=== PATIENT | female | born 1975 | race Caucasian/White ===

== ENCOUNTER 2017-08-31 05:07 | Outpatient (CLI) | payer MEDICARE, MEDICAID ==
[2017-08-31] MEDS ORDERED: fentaNYL 100 MCG/2 ML VIAL ONE (17:49)
[2017-08-31] MEDS ORDERED: PROMETHAZINE 25 MG/1 ML VIAL ONE (18:38)
== END 2017-08-31 05:08 | disposition critical access hospital (66) ==
LOC: EMS 05:07
PROVIDERS: ATTEND Surgery
DX: R10.9 Unspecified abdominal pain (principal)
CPT/HCPCS: A0425; A0429

== ENCOUNTER 2017-08-31 05:30 | Day surgery (SDC) | payer MEDICARE, MEDICAID ==
[2017-08-31] MEDS ORDERED: HYDROmorphone 1 MG/ML SYRINGE IVP STA ×4 (05:53→14:38)
[2017-08-31] MEDS ORDERED: ONDANSETRON 4 MG/2 ML VIAL IVP STA ×3 (05:53→13:27)
[2017-08-31] MEDS ORDERED: SODIUM CHLORIDE 0.9% 1,000 ML IV ONE ×2 (05:53→12:16)
--- NOTE | 2017-08-31 05:54 | ED Physician Documentation ---
PD HPI ABD PAIN - Stated complaint Stated Complaint: ABD PAIN - Chief complaint Chief Complaint: Abd Pain - History obtained from History obtained from: Patient - History of Present Illness Timing - onset: How many days ago (2) Timing - details: Waxing and waning Quality: Pain Location: RUQ, LUQ Worsened by: Eating Associated symptoms: Nausea, Vomiting, Diarrhea. No: Fever, Dysuria, Chest pain - Additional information Additional information: The patient is a 42-year-old female who presents with upper abdominal pain radiating to her back. The pain started 2 1/2 days ago after eating a turkey sandwich. It has been waxing and waning since that time and became worse this morning. She has had associated nausea, vomiting, and diarrhea. She denies fever, chest pain, shortness of breath, or dysuria. She has had similar but less severe symptoms in the past. She is status post lap band placement in 2010 , and is status post . Review of Systems Constitutional: denies: Fever Ears: denies: Tinnitus/ringing Nose: denies: Congestion Throat: denies: Sore throat Cardiac: denies: Chest pain / pressure Respiratory: denies: Dyspnea, Cough GI: reports: Abdominal Pain, Nausea, Vomiting, Diarrhea : denies: Dysuria Skin: denies: Rash Musculoskeletal: reports: Back pain. 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 PCOS - Past Surgical History Past Surgical History: Yes General: Other - Social History Does the pt smoke?: No Smoking Status: Never smoker Does the pt drink ETOH?: No Does the pt have substance abuse?: No - Immunizations Immunizations are current?: Yes PD ED PE NORMAL - Vitals Vital signs reviewed: Yes (Hypertensive initially.) - General General: Alert and oriented X 3, Other (Morbidly obese.) - HEENT HEENT: Atraumatic, Moist mucous membranes, Pharynx benign - Neck Neck: Supple, no meningeal sign, No adenopathy, No JVD - Cardiac Cardiac: RRR, No murmur - Respiratory Respiratory: No respiratory distress, Clear bilaterally - Abdomen Abdomen: Normal bowel sounds, Soft, Other (Tenderness to palpation across the upper abdomen, with mild tenderness even in the lower abdomen, without rebound or guarding.) - Back Back: No CVA TTP, No spinal TTP - Derm Derm: No rash - Extremities Extremities: No tenderness to palpate, No calf tenderness / cord - Neuro Neuro: Alert and oriented X 3, No motor deficit, Normal speech Results - Vitals Vitals: Vital Signs - 24 hr 08/31/17 08/31/17 08/31/17 05:38 06:43 07:26 Temperature 35.9 C L 36.6 C 36.9 C Heart Rate 89 72 80 Respiratory 18 16 14 Rate Blood Pressure 140/89 H 122/74 124/73 O2 Saturation 100 97 97 08/31/17 08:00 Temperature Heart Rate 74 Respiratory 18 Rate Blood Pressure 129/77 O2 Saturation 95 Oxygen O2 Source Room air - Labs Labs: Laboratory Tests 08/31/17 08/31/17 08/31/17 05:52 06:20 08:05 WBC 7.7 RBC 4.05 L Hgb 11.5 L Hct 34.3 L MCV 84.7 MCH 28.3 MCHC 33.4 RDW 15.2 H Plt Count 277 MPV 8.3 Neut # 6.8 H Lymph # 0.6 L [place] # 0.2 Eos # 0.0 Baso # 0.1 Absolute Nucleated RBC 0.00 Nucleated RBC % 0.0 Sodium 137 Potassium 3.9 Chloride 103 Carbon Dioxide 22 Anion Gap 12.0 BUN 13 Creatinine 0.8 Estimated GFR (MDRD) 79 L Glucose 130 H Calcium 9.0 Total Bilirubin 0.4 AST 18 ALT 14 Alkaline Phosphatase 45 Total Protein 7.6 Albumin 3.9 Globulin 3.7 Albumin/Globulin Ratio 1.1 Lipase 21 L Urine Color YELLOW Urine Clarity CLEAR Urine pH 6.0 Ur Specific [place] 1.015 Urine Protein NEGATIVE Urine Glucose (UA) NEGATIVE Urine Ketones 15 H Urine Occult Blood NEGATIVE Urine Nitrite NEGATIVE Urine Bilirubin NEGATIVE Urine Urobilinogen 0.2 (NORMAL) Ur Leukocyte Esterase NEGATIVE Ur Microscopic Review NOT INDICATED Urine Culture Comments NOT INDICATED PD MEDICAL DECISION MAKING - ED course Complexity details: reviewed results, re-evaluated patient, considered differential, d/w patient ED course: The patient presents with upper abdominal pain that is of uncertain etiology at this time. CBC, chemistry panel, and urinalysis are unremarkable. Initial treatment in the emergency department included administration of normal saline 1 L IV, Dilaudid 1 mg IV, and Zofran 4 mg IV. This helped diminish the patient' s pain and nausea. On reexamination she is more exquisitely tender now in the right upper quadrant than elsewhere. An ultrasound of the right upper quadrant has been ordered, and the results are pending. At change of shift her care is being signed out to Dr. Ford who will follow-up on the ultrasound results and provide appropriate disposition. If there is no biliary cause found to explain the patient's symptoms, possible malfunction of the lap band may need to be further considered.
[2017-08-31] MEDS ORDERED: ONDANSETRON 4 MG/2 ML VIAL ONE ×4 (06:08→13:46)
[2017-08-31 06:43] LABS: ALBUMIN/GLOBULIN RATIO 1.1 (1.0-2.2); BILIRUBIN,TOTAL 0.4 mg/dL (0.2-1.0); CREATININE 0.8 mg/dL (0.4-1.0); POTASSIUM 3.9 mmol/L (3.5-5.0); TOTAL PROTEIN 7.6 g/dL (6.7-8.2)
[2017-08-31 08:11] LABS: BASOPHILS # (AUTO) 0.1 10^3/uL (0.0-0.1); BASOPHILS % (AUTO) 0.8 %; EOSINOPHILS % (AUTO) 0.1 %; HCT - HEMATOCRIT 34.3 % (37.0-47.0); HGB - HEMOGLOBIN 11.5 g/dL (12.0-16.0); LYMPHOCYTES # (AUTO) 0.6 10^3/uL (1.5-3.5); LYMPHOCYTES % (AUTO) 8.4 %; MEAN CORPUSCULAR HEMOGLOBIN 28.3 pg (27.0-31.0); MEAN CORPUSCULAR HGB CONC 33.4 g/dL (32.0-36.0); MEAN CORPUSCULAR VOLUME 84.7 fL (81.0-99.0); MEAN PLATELET VOLUME 8.3 fL (7.9-10.8); MONOCYTES # (AUTO) 0.2 10^3/uL (0.0-1.0); MONOCYTES % (AUTO) 2.6 %; NEUTROPHILS # (AUTO) 6.8 10^3/uL (1.5-6.6); NEUTROPHILS % (AUTO) 88.1 %; RED BLOOD COUNT 4.05 10^6/uL (4.20-5.40); RED CELL DISTRIBUTION WIDTH 15.2 % (12.0-15.0); UNCORRECTED WHITE BLOOD COUNT 7.7 x10^3/uL; WHITE BLOOD COUNT 7.7 x10^3/uL (4.8-10.8)
[2017-08-31 08:19] LABS: BILIRUBIN,URINE NEGATIVE (NEGATIVE)
[2017-08-31 08:21] LABS: UA CHARGE (STRIP ONLY) YES; UR CULTURE IF IND NOT INDICATED
[2017-08-31] MEDS ORDERED: HYDROmorphone 0.5 MG/0.5 ML SYRINGE IVP STA (08:43)
[2017-08-31] MEDS ORDERED: HYDROmorphone 1 MG/ML SYRINGE ONE ×5 (08:50→18:51)
--- NOTE | 2017-08-31 10:59 | Ultrasound Report ---
RIGHT UPPER QUADRANT ULTRASOUND: 08/31/2017 CLINICAL INDICATION: Pain, vomiting. TECHNIQUE: Real-time scanning was performed with contact representative static images obtained. FINDINGS: The liver measures 17.2 cm. Hepatic echogenicity is increased, compatible with fatty infil tration. No focal parenchymal lesion is seen. The common bile duct is minimally prominent, measuring 6 mm. The gallbladder demonstrates a calculus lodged in the neck. Localized tenderness is present. Th e right kidney measures 12.7 cm, and demonstrates no hydronephrosis. No free fluid is seen. IMPRESSION: CHOLELITHIASIS, WITH LOCALIZED TENDERNESS, COMPATIBLE WITH CALCULOUS CHOLECYSTITIS. FATT Y INFILTRATION OF THE LIVER. JOB #: [id number] EXT JOB #:[id number]
--- NOTE | 2017-08-31 12:23 | ED Physician Documentation ---
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 PCOS - Past Surgical History Past Surgical History: Yes General: Other - Present Medications Home Medications: Ambulatory Orders Medication Instructions Recorded Confirmed Citalopram [CeleXA] 10 mg PO DAILY 08/31/17 08/31/17 Labetalol [Trandate] 100 mg PO DAILY 08/31/17 08/31/17 metFORMIN [Glucophage] 500 mg PO DAILY 08/31/17 08/31/17 - Allergies Allergies/Adverse Reactions: Allergies Allergy/AdvReac Type Severity Reaction Status Date / Time acetaminophen [From Vicodin] Allergy Unknown Verified 08/31/17 08:46 hydrocodone [From Vicodin] Allergy Unknown Verified 08/31/17 08:46 - Social History Does the pt smoke?: No Smoking Status: Never smoker Does the pt drink ETOH?: No Does the pt have substance abuse?: No - Immunizations Immunizations are current?: Yes Results - Vitals Vitals: Vital Signs - 24 hr 08/31/17 08/31/17 08/31/17 05:38 06:43 07:26 Temperature 35.9 C L 36.6 C 36.9 C Heart Rate 89 72 80 Respiratory 18 16 14 Rate Blood Pressure 140/89 H 122/74 124/73 O2 Saturation 100 97 97 08/31/17 08/31/17 08/31/17 08:00 09:23 10:20 Temperature 36.9 C Heart Rate 74 79 70 Respiratory 18 15 15 Rate Blood Pressure 129/77 118/68 148/91 H O2 Saturation 95 97 97 Oxygen O2 Source Room air - Labs Labs: Laboratory Tests 08/31/17 08/31/17 08/31/17 05:52 06:20 08:05 WBC 7.7 RBC 4.05 L Hgb 11.5 L Hct 34.3 L MCV 84.7 MCH 28.3 MCHC 33.4 RDW 15.2 H Plt Count 277 MPV 8.3 Neut # 6.8 H Lymph # 0.6 L [place] # 0.2 Eos # 0.0 Baso # 0.1 Absolute Nucleated RBC 0.00 Nucleated RBC % 0.0 Sodium 137 Potassium 3.9 Chloride 103 Carbon Dioxide 22 Anion Gap 12.0 BUN 13 Creatinine 0.8 Estimated GFR (MDRD) 79 L Glucose 130 H Calcium 9.0 Total Bilirubin 0.4 AST 18 ALT 14 Alkaline Phosphatase 45 Total Protein 7.6 Albumin 3.9 Globulin 3.7 Albumin/Globulin Ratio 1.1 Lipase 21 L Urine Color YELLOW Urine Clarity CLEAR Urine pH 6.0 Ur Specific [place] 1.015 Urine Protein NEGATIVE Urine Glucose (UA) NEGATIVE Urine Ketones 15 H Urine Occult Blood NEGATIVE Urine Nitrite NEGATIVE Urine Bilirubin NEGATIVE Urine Urobilinogen 0.2 (NORMAL) Ur Leukocyte Esterase NEGATIVE Ur Microscopic Review NOT INDICATED Urine Culture Comments NOT INDICATED PD MEDICAL DECISION MAKING - ED course Complexity details: reviewed old records, reviewed results, re-evaluated patient , considered differential, d/w patient ED course: 42-year-old female status post lap band in 2010 has developed right upper quadrant pain she has had this periodically previously never this bad and she has had pain now for 2 and half days. She is not able to eat drink or keep any of her medications down. An ultrasound done demonstrates a large solitary stone lodged in the neck of the gallbladder and a my read of the pictures demonstrate trace pericholecystic fluid. Dr. Aviles is consulted in the case and will see the patient in the ED. Departure - Departure Disposition: ED Place in Observation Clinical Impression: Cholelithiasis Qualifiers: Cholelithiasis location: gallbladder Cholecystitis presence: with cholecystitis Cholecystitis acuity: acute Biliary obstruction: without biliary obstruction Qualified Code(s): K80.00 - Calculus of gallbladder with acute cholecystitis without obstruction
[2017-08-31 15:03] LABS: HCG UR QUAL NEGATIVE
[2017-08-31] MEDS ORDERED: BUPIVACAINE 0.25%-EPI 1:200000 PF 30 ML VIAL SUBQ ONE (15:50)
[2017-08-31] MEDS ORDERED: LACTATED RINGERS 1,000 ML IV ONE ×3 (15:51→17:58)
[2017-08-31] MEDS ORDERED: ONDANSETRON 4 MG/2 ML VIAL IVP ONE (16:25)
[2017-08-31] MEDS ORDERED: ACETAMINOPHEN 1,000 MG/100 ML 100 ML IV ONE (16:25)
[2017-08-31] MEDS ORDERED: MIDAZOLAM 2 MG/2 ML VIAL IVP ONE (16:25)
[2017-08-31] MEDS ORDERED: ROCURONIUM 50 MG/5 ML VIAL IVP ONE (16:25)
[2017-08-31] MEDS ORDERED: fentaNYL 100 MCG/2 ML VIAL IVP ONE (16:25)
[2017-08-31] MEDS ORDERED: KETOROLAC 30 MG/ML VIAL IVP ONE (16:25)
[2017-08-31] MEDS ORDERED: PROPOFOL 200 MG/20 ML VIAL IVP ONE (16:25)
[2017-08-31] MEDS: HYDROmorphone 1 MG/ML SYRINGE ONE ×4 (18:06→18:52)
[2017-08-31] MEDS ORDERED: ONDANSETRON 4 MG/2 ML VIAL IVP PRN ×2 (20:01→21:14)
[2017-08-31] MEDS ORDERED: MORPHINE 2 MG/ML SYRINGE IVP PRN (21:14)
[2017-08-31] MEDS ORDERED: ZOLPIDEM 5 MG TABLET ONE (21:16)
[2017-08-31] MEDS ORDERED: ZOLPIDEM 5 MG TABLET PO SCH (22:00)
[2017-08-31] MEDS: oxyCOD/ACETAMIN 5 MG/325 MG TABLET PO PRN ×2 (22:37→22:43)
[2017-08-31] MEDS ORDERED: SODIUM CHLORIDE FLUSH 0.9% 10 ML SYRINGE IVP ONE ×2 (22:39→23:48)
[2017-08-31 23:41] VITALS: BP 147/86
[2017-08-31] MEDS: ACETAMINOPHEN 1,000 MG/100 ML 100 ML IV PRN (23:44)
[2017-09-01] MEDS ORDERED: PROMETHAZINE INJ 25 MG in SODIUM CHLORIDE 0.9% 50 ML IV PRN (02:03)
[2017-09-01] MEDS ORDERED: KETOROLAC 30 MG/ML VIAL IVP SCH (02:03)
[2017-09-01] MEDS ORDERED: PROMETHAZINE 25 MG/1 ML VIAL ONE (02:56)
[2017-09-01] MEDS ORDERED: SODIUM CHLORIDE FLUSH 0.9% 10 ML SYRINGE IVP ONE ×2 (03:07→09:24)
[2017-09-01] MEDS ORDERED: SODIUM CHLORIDE 0.9% 100ML 100 ML IV ONE (03:08)
--- NOTE | 2017-09-01 03:43 | OPERATIVE REPORT ---
DATE OF SURGERY: 08/31/2017 00:00:00 SURGEON: Darcy Aviles MD. PREOPERATIVE DIAGNOSIS: Biliary colic. POSTOPERATIVE DIAGNOSIS: Acute cholecystitis. OPERATION PERFORMED: Laparoscopic cholecystectomy. INDICATION FOR PROCEDURE: This is a 42-year-old female with pain for the past 3 days, consistent with biliary colic vs acute cholecystitis. She came to the emergency department today and white count and LFTs were noted to be normal. Her gallbladder ultrasound demonstrated a large stone in the neck of the gallbladder. FINDINGS: After obtaining informed consent, the patient was brought into the operating room and positioned on the operating table in the supine position with a foot board in place and taped to the table. She was intubated by Anesthesia. She was prepped and draped in the usual sterile fashion. Perioperative antibiotics were administered. Due to the patient's morbid obesity and body habitus in addition to a lap band with an intraabdominal port, I elected to perform the Optiview approach directly. A 5 mm incision was created in the epigastric region and the Optiview trocar utilized to enter the abdominal cavity in this location. The cavity was then insufflated. A 1 cm incision was then created approximately 5 cm above the patient's umbilicus to the right of the palpable intraabdominal port. This was inserted under direct visualization. Two additional 5 mm ports were then placed along the patient's right lateral abdominal wall. The gallbladder was visualized and noted to be very distended. The drainage needle was inserted and approximately 50 mL of very light bilious fluid was evacuated. The gallbladder was then grasped and retracted over the dome of the liver. A very large stone was noted in the neck of the gallbladder, creating difficulty grasping it at this location. The gallbladder was retracted medially exposing the lateral attachments. These were divided towards the anterior aspect of the neck of the gallbladder and then continued around towards the medial aspect of the gallbladder, the gallbladder from the peritoneal attachments. The cystic duct was identified, circumferentially dissected from the fatty tissue. The cystic artery was similarly dissected away from the Calot's node and other subcutaneous tissue. The base of the gallbladder was dissected off of the liver bed. A critical view was obtained. The cystic duct was clipped with 2 clips placed proximally, 1 distally, and divided. The artery was divided in a similar manner. The gallbladder was then removed from the gallbladder fossa with electrocautery. There was some spillage of bile during this process from the drainage needle insertion site. There was also some bleeding from the liver bed; however, this was controlled with electrocautery. The gallbladder was eventually completely removed and placed in a specimen bag. Due to the very large stone, the umbilical port site had to be extended in order to allow withdrawal of the gallbladder. The sac actually partially ruptured during this process and a second EndoCatch bag was inserted and the gallbladder and bag were placed in a second EndoCatch bag. Eventually the gallbladder was completely removed from the abdominal cavity after extending the fascial incision to accommodate the very large gallstone. The ports were then reinserted. The liver bed was inspected and there was a small amount of bleeding on the tip of the liver, which was controlled with electrocautery. The liver bed was irrigated copiously and a piece of Surgicel placed in the gallbladder fossa. Irrigation was removed and was noted to be clear. The lower abdominal port site was then closed using the Anastacio-Shaw device with 0 Vicryl suture. All ports were removed after the abdominal cavity was desufflated. There was a persistent facial defect noted at the lower abdominal incision. This was closed directly with a 0 Vicryl suture from the anterior approach. The subcutaneous tissue was closed with 3-0 Vicryl; 30 mL of local anesthetic was utilized and the skin incisions were closed with 4-0 Monocryl and Dermabond was applied. The patient was then extubated and taken to the recovery room in stable condition. ESTIMATED BLOOD LOSS: 20 mL. SPECIMENS: Gallbladder. COMPLICATIONS: None. JOB #: [id number] EXT JOB #:[id number] [facility]OSPITALJono
[2017-09-01] MEDS: oxyCOD/ACETAMIN 5 MG/325 MG TABLET PO PRN (08:32)
[2017-09-01] MEDS: ACETAMINOPHEN 1,000 MG/100 ML 100 ML IV PRN (09:22)
== END 2017-09-01 13:02 | disposition home or self-care (01) ==
LOC: ED 05:30 → SUPCPDRO 05:30 → SDS 15:00 → OBS 18:15 → SDS 09-01 13:02
PROVIDERS: ATTEND Surgery
PROC: 0FT44ZZ Resection of Gallbladder, Percutaneous Endoscopic Approach (ICD-10-PCS; principal; 2017-09-01)
DX: K80.10 Calculus of gallbladder with chronic cholecystitis without obstruction (principal); E11.9 Type 2 diabetes mellitus without complications; Z79.84 Long term (current) use of oral hypoglycemic drugs
CPT/HCPCS: 47562; 76705; 80053; 81003; 81025; 83690; 85025; 96361; 96374; 96375; 96376; 99284; 99285; A9270; J0131; J1170; J2270; J7040; J7120; 81001; 87086

== ENCOUNTER 2017-09-07 13:12 | Outpatient (CLI) | payer MEDICARE, MEDICAID | END 2017-09-07 13:13 | disposition critical access hospital (66) | LOC: EMS 13:12 | PROVIDERS: ATTEND Surgery | DX: R10.9 Unspecified abdominal pain (principal); Z90.49 Acquired absence of other specified parts of digestive tract | CPT/HCPCS: A0425; A0427 ==

== ENCOUNTER 2017-09-07 13:35 | Observation (INO) | payer MEDICARE, MEDICAID ==
--- NOTE | 2017-09-07 13:46 | ED Physician Documentation ---
PD HPI ABD PAIN - Stated complaint Stated Complaint: ABD PX - Chief complaint Chief Complaint: Abd Pain - History obtained from History obtained from: Patient, EMS - History of Present Illness Timing - onset: How many days ago (3 days of worse pain than the immmediate post -operative pain. Today significantly worse.) Timing - duration: Days Timing - details: Gradual onset, Still present Quality: Cramping, Aching, Pain Location: RUQ, Periumbilical Radiation: Upper back Improved by: No: Vomiting Worsened by: Moving, Position. No: Breathing Associated symptoms: Fever (subjective chills), Nausea. No: Diarrhea, Constipation Recently seen: Surgery (Had emergent cholecystectomy a week ago for right upper quadrant pain. Done by Dr. Keo [place]. She states she is doing okay postoperatively Thursday through Thursday and have been taking some Percocet for pain. She had increased pain over the weekend (the past 2 days) but no feeling of nausea or vomiting. Today she had a marked increase in the amount of pain in the upper abdomen associated with nausea. She did feel chilled. She had a considerable amount of pain and came into the ER moaning and in significant pain.) Review of Systems Constitutional: reports: Chills. denies: Fever Cardiac: denies: Chest pain / pressure, Palpitations Respiratory: denies: Dyspnea, Cough, Wheezing GI: reports: Abdominal Pain, Nausea, Vomiting. 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 HEENT: None Psych: Depression, Anxiety Musculoskeletal: None Derm: None - Past Surgical History Past Surgical History: Yes General: Other - Present Medications Home Medications: Ambulatory Orders Medication Instructions Recorded Confirmed Citalopram [CeleXA] 10 mg PO DAILY 08/31/17 09/07/17 Labetalol [Trandate] 100 mg PO DAILY 08/31/17 09/07/17 metFORMIN [Glucophage] 500 mg PO BID 08/31/17 09/07/17 - Allergies Allergies/Adverse Reactions: Allergies Allergy/AdvReac Type Severity Reaction Status Date / Time acetaminophen [From Vicodin] Allergy Unknown Verified 09/07/17 13:39 hydrocodone [From Vicodin] Allergy Unknown Verified 09/07/17 13:39 - Social History Does the pt smoke?: No Smoking Status: Never smoker Does the pt drink ETOH?: No Does the pt have substance abuse?: No - Immunizations Immunizations are current?: Yes PD ED PE NORMAL - Vitals Vital signs reviewed: Yes - General General: Alert and oriented X 3, Well developed/nourished, Other (appears very uncomfortable with loud moaning continually. ) - HEENT HEENT: Atraumatic, PERRL (nonicteric) - Neck Neck: Supple, no meningeal sign, No adenopathy - Cardiac Cardiac: RRR, No murmur - Respiratory Respiratory: Clear bilaterally - Abdomen Abdomen: Soft, Non distended, Other (tender upper abdomen and right abd wall. Incision sites are lower abd and not tender, without signs of infection. ). No : Normal bowel sounds (diminished) - Female Female : Deferred - Rectal Rectal: Deferred - Back Back: No CVA TTP - Derm Derm: Normal color, Warm and dry, No rash - Extremities Extremities: No deformity, No tenderness to palpate, Normal ROM s pain, No edema , No calf tenderness / cord - Neuro Neuro: Alert and oriented X 3, No motor deficit, Normal speech - Psych Psych: Normal mood, Normal affect Results - Vitals Vitals: Vital Signs - 24 hr 09/07/17 09/07/17 09/07/17 13:37 15:00 16:00 Temperature 36.7 C Heart Rate 80 84 86 Respiratory 24 20 16 Rate Blood Pressure 144/92 H 156/90 H 148/70 H O2 Saturation 96 100 Oxygen O2 Source Room air - Labs Labs: Laboratory Tests 09/07/17 09/07/17 14:35 14:35 WBC 10.3 RBC 5.07 Hgb 14.4 Hct 42.6 MCV 84.1 MCH 28.3 MCHC 33.7 RDW 15.1 H Plt Count 412 MPV 7.6 L Neut # 8.3 H Lymph # 1.2 L [place] # 0.5 Eos # 0.3 Baso # 0.0 Absolute Nucleated RBC 0.01 Nucleated RBC % 0.1 Sodium 138 Potassium 4.1 Chloride 101 Carbon Dioxide 23 Anion Gap 14.0 H BUN 12 Creatinine 0.8 Estimated GFR (MDRD) 79 L Glucose 120 H Calcium 9.4 Total Bilirubin 0.5 AST 47 H ALT 41 Alkaline Phosphatase 54 Total Protein 7.8 Albumin 3.9 Globulin 3.9 Albumin/Globulin Ratio 1.0 Lipase 25 - Rads (name of study) abd CT Radiology: Prelim report reviewed (There is some fluid and air in the gallbladder fossa. There is also air and inflammatory changes with some edema in the right abdominis rectus muscle. Nonspecific benjamin color in the mid abdomen. These may represent postoperative changes and continued versus concern for inflammatory or infectious process.) PD MEDICAL DECISION MAKING - ED course Complexity details: reviewed results, re-evaluated patient (Several doses of pain medication and nausea medicine were required to get the patient comfortable. On reexam she is pump tender on the right abdomen with some guarding. Externally there is still no signs of infection at the skin incision areas.), considered differential, d/w patient, d/w telesales consultant (Dr. Morales, fire protection designer surgery) Departure - Departure Disposition: ED Place in Observation Clinical Impression: Post-operative pain Abdominal pain Qualifiers: Abdominal location: right upper quadrant Qualified Code(s): R10.11 - Right upper quadrant pain Condition: Stable Record reviewed to determine appropriate education?: Yes Discharge Date/Time: 09/07/17 18:03
[2017-09-07] MEDS ORDERED: SODIUM CHLORIDE 0.9% 1,000 ML IV ONE (14:00)
[2017-09-07] MEDS ORDERED: HYDROmorphone 1 MG/ML SYRINGE IVP STA ×3 (14:00→15:01)
[2017-09-07] MEDS ORDERED: ONDANSETRON 4 MG/2 ML VIAL IVP STA (14:00)
[2017-09-07] MEDS ORDERED: KETOROLAC 60 MG/2 ML VIAL IVP STA (14:01)
[2017-09-07] MEDS ORDERED: IOPAMIDOL-300 100 ML VIAL ONE (14:10)
[2017-09-07] MEDS ORDERED: ONDANSETRON 4 MG/2 ML VIAL ONE (14:20)
[2017-09-07] MEDS ORDERED: HYDROmorphone 1 MG/ML SYRINGE ONE ×3 (14:20→15:48)
[2017-09-07] MEDS ORDERED: KETOROLAC 30 MG/ML VIAL ONE (14:47)
[2017-09-07 14:54] LABS: BASOPHILS % (AUTO) 0.2 %; EOSINOPHILS # (AUTO) 0.3 10^3/uL (0.0-0.7); EOSINOPHILS % (AUTO) 2.6 %; HCT - HEMATOCRIT 42.6 % (37.0-47.0); HGB - HEMOGLOBIN 14.4 g/dL (12.0-16.0); LYMPHOCYTES # (AUTO) 1.2 10^3/uL (1.5-3.5); LYMPHOCYTES % (AUTO) 11.5 %; MEAN CORPUSCULAR HEMOGLOBIN 28.3 pg (27.0-31.0); MEAN CORPUSCULAR HGB CONC 33.7 g/dL (32.0-36.0); MEAN CORPUSCULAR VOLUME 84.1 fL (81.0-99.0); MEAN PLATELET VOLUME 7.6 fL (7.9-10.8); MONOCYTES # (AUTO) 0.5 10^3/uL (0.0-1.0); MONOCYTES % (AUTO) 5.1 %; NEUTROPHILS # (AUTO) 8.3 10^3/uL (1.5-6.6); NEUTROPHILS % (AUTO) 80.6 %; NUCLEATED RED BLOOD CELLS AUTO 0.1 /100WBC; RED BLOOD COUNT 5.07 10^6/uL (4.20-5.40); RED CELL DISTRIBUTION WIDTH 15.1 % (12.0-15.0); UNCORRECTED WHITE BLOOD COUNT 10.3 x10^3/uL; WHITE BLOOD COUNT 10.3 x10^3/uL (4.8-10.8)
[2017-09-07 15:04] LABS: BILIRUBIN,TOTAL 0.5 mg/dL (0.2-1.0); CALCIUM 9.4 mg/dL (8.5-10.3); CREATININE 0.8 mg/dL (0.4-1.0); POTASSIUM 4.1 mmol/L (3.5-5.0); TOTAL PROTEIN 7.8 g/dL (6.7-8.2)
[2017-09-07] MEDS ORDERED: IOPAMIDOL-300 100 ML VIAL IVP ONE (15:42)
--- NOTE | 2017-09-07 16:13 | CT Report ---
EXAM: CT ABDOMEN AND PELVIS EXAM DATE: 09/07/2017 03:47 PM. CLINICAL HISTORY: Post operative pain and vomiting, 1 week post cholecystectomy. COMPARISONS: Abdominal ultrasound 08/31/2017. TECHNIQUE: Routine helical CT imaging was performed through the abdomen and pelvis. IV contrast: Isov ue 300 100mL. Enteric contrast: No. Reconstructions: Coronal and sagittal. Large BMI with associated streak artifacts. In accordance with CT protocol optimization, one or more of the following dose reduction techniques w ere utilized for this exam: automated exposure control, adjustment of mA and/or KV based on patient s ize, or use of iterative reconstructive technique. FINDINGS: Lung Bases: Unremarkable. Liver: Normal. No masses. Gallbladder/Bile Ducts: Surgically absent. Postoperative fluid and air within gallbladder fossa. Spleen: Central calcified granuloma. Pancreas: Normal. Adrenal Glands: Normal. Kidneys: Normal. No masses or hydronephrosis. Peritoneal Cavity/Bowel: Laparoscopic gastric band noted. Tubing appears intact. The appendix is well visualized and normal. Mild benjamin appearance versus artifact of lower abdominal mesentery on coronal images 26-30. Streak artifacts in posterior abdomen and pelvis. Very small fat-containing vocal hernia. No inflammation evident. Pelvic Organs: Bladder is collapsed. Anteverted uterus is grossly unremarkable with evaluation limite d by streak artifacts. No adnexal mass evident. Vasculature: No aneurysms or other significant abnormality. Bones: L5-S1 degenerative disk changes. At least mild bilateral L5-S1 neuroforaminal narrowing relate d to disk osteophyte complexes. Other: Elongated foci of soft tissue air within and along right rectus muscle. IMPRESSION: 1. Small amount of fluid and air within gallbladder fossa. Probably normal findings, given recent cho lecystectomy. No definite rim-enhancing abscess demonstrated. 2. Small amount of postoperative air is also noted within and adjacent to right rectus muscle. 3. Laparoscopic gastric band noted. 4. Benjamin appearance of lower abdominal mesentery may be from mild edema or artifact. Band of streak a rtifacts noted posterior to this area. No mesenteric arterial or venous thrombus evident. 5. No bowel obstruction. [facility] Referring Provider Line: [phone] SITE ID: [id number]
[2017-09-07] MEDS ORDERED: HYDROmorphone 0.5 MG/0.5 ML SYRINGE IVP PRN (17:41)
[2017-09-07] MEDS ORDERED: ONDANSETRON 4 MG/2 ML VIAL IVP PRN (18:06)
[2017-09-07] MEDS: HYDROmorphone 1 MG/ML SYRINGE IVP PRN ×2 (19:45→23:46)
[2017-09-07] MEDS: AMPICILLIN/SULBACTAM 3 GM in SODIUM CHLORIDE 0.9% MINIBAG 100 ML IV SCH (19:48)
[2017-09-07] MEDS: D5NS W/20 MEQ KCL 1,000 ML IV SCH (19:48)
[2017-09-07] MEDS ORDERED: LABETALOL 100 MG TABLET PO SCH (21:00)
[2017-09-07] MEDS ORDERED: CITALOPRAM 10 MG TABLET PO SCH (21:00)
[2017-09-07 21:04] LABS: HCG UR QUAL NEGATIVE
[2017-09-07] MEDS: SODIUM CHLORIDE FLUSH 0.9% 10 ML SYRINGE IVP PRN (23:46)
[2017-09-07] MEDS ORDERED: ZOLPIDEM 5 MG TABLET PO PRN (23:59)
[2017-09-08] MEDS: AMPICILLIN/SULBACTAM 3 GM in SODIUM CHLORIDE 0.9% MINIBAG 100 ML IV SCH ×3 (00:13→12:19)
--- NOTE | 2017-09-08 03:00 | HISTORY & PHYSICAL EXAMINATION ---
DATE OF ADMISSION: 09/07/2017 REASON FOR ADMISSION: Abdominal pain status post laparoscopic cholecystectomy. HISTORY OF PRESENT ILLNESS: The patient is a 42-year-old female who presents with increasing abdomina l pain. She had underwent a laparoscopic cholecystectomy 1 week ago. She been on Percocet, but has no t had any pain medication as she has run out for last 2 days. Because of the increasing abdominal terrell n she came to the emergency room. She denies any nausea, vomiting, fevers or problems with bowel move ments. PAST SURGICAL HISTORY/MEDICAL PROBLEMS/ALLERGIES/HABITS/FAMILY HISTORY: See history of present illnes s. PHYSICAL EXAMINATION: VITAL SIGNS: Temperature is 36.6, heart rate 86, blood pressure 148/70. GENERAL: The patient is lying in bed. She is cooperative and not in any distress at the current time. HEENT: Eyes anicteric. HEART: Regular. LUNGS: Clear. ABDOMEN: Soft. Abdominal incision is clean without any evidence of infection. DIAGNOSTIC DATA: White blood cell count 10, hemoglobin 14. Liver function tests show an AST of 47 wit h the rest of them being normal. CT scan of the abdomen and pelvis shows a small amount of fluid artie g with air in the gallbladder fossa of unknown significance. ASSESSMENT: Abdominal pain status post laparoscopic cholecystectomy one week ago. CT scan does show p ostoperative changes, but unable to tell if there are acute changes. I would recommend the patient un dergo a hepatobiliary scan to rule out any bile leak. PLAN: 1. The patient will be admitted to observation. 2. N.p.o. 3. Empiric IV antibiotics. 4. IV pain medications. 5. Hepatobiliary scan. JOB #: [id number] EXT JOB #:[id number]
[2017-09-08] MEDS ORDERED: LORazepam 2 MG/ML SYRINGE IVP SCH (03:23)
[2017-09-08] MEDS ORDERED: SUMAtriptan 6 MG/0.5 ML VIAL SUBQ SCH (03:23)
[2017-09-08] MEDS: SODIUM CHLORIDE FLUSH 0.9% 10 ML SYRINGE IVP PRN ×5 (03:42→14:31)
[2017-09-08] MEDS ORDERED: SUMAtriptan 6 MG/0.5 ML VIAL SUBQ ONE (03:57)
[2017-09-08] MEDS: D5NS W/20 MEQ KCL 1,000 ML IV SCH ×2 (04:38→09:40)
[2017-09-08] MEDS: HYDROmorphone 1 MG/ML SYRINGE IVP PRN ×5 (05:16→14:32)
[2017-09-08 06:25] LABS: BILIRUBIN,TOTAL 0.3 mg/dL (0.2-1.0); TOTAL PROTEIN 6.5 g/dL (6.7-8.2)
[2017-09-08 06:35] LABS: BILIRUBIN,DIRECT < 0.1 mg/dL (0.1-0.5)
--- NOTE | 2017-09-08 11:47 | Nuclear Medicine Prelim Report ---
Exam: NM HEPATOBILIARY HIDA W/O RX IMPRESSION: 1. Nonvisualization of the gallbladder compatible with cholecystectomy. No definite abnormal radiotra cer collection to indicate bile leak. 2. Probable enterogastric reflux as noted above. [facility] SITE ID: [id number]
--- NOTE | 2017-09-08 11:49 | Nuclear Medicine Report ---
EXAM: HEPATOBILIARY SCAN WITH CCK/KINEVAC ADMINISTRATION EXAM DATE: 09/08/2017 09:41 AM. CLINICAL HISTORY: R/o biliary leak. Upper abdominal pain. Recent laparoscopic cholecystectomy. COMPARISON: CT 09/07/2017. TECHNIQUE: Following the intravenous administration of four-point mCi of Tc99m Mebrofenin, a hepatobi liary scan was done centered on the liver and gallbladder in multiple sequential images and projectio ns. FINDINGS: Normal extraction of tracer from the blood pool indicating normal hepatocellular function. The liver size and shape is grossly within normal limits. Appearance of tracer in the biliary tree as early as 10 minutes, within normal limits. Gallbladder is not visualized compatible with reported history of cholecystectomy. On the 10 minute a nd subsequent images, there is moderate activity extending medial and cephalad to the region of the g allbladder fossa, most likely enterogastric reflux. No definite abnormal radiotracer collection to in dicate bile leak. Appearance of tracer in the small bowel as early as 10 minutes, within normal limits. IMPRESSION: 1. Nonvisualization of the gallbladder compatible with cholecystectomy. No definite abnormal radiotra cer collection to indicate bile leak. 2. Probable enterogastric reflux as noted above. [facility] Referring Provider Line: [phone] SITE ID: [id number]
[2017-09-08 13:02] VITALS: BP 148/96
--- NOTE | 2017-09-08 13:13 | Discharge Plan ---
Discharge Plan Disposition: 01 Home, Self Care Condition: Stable Diet: Regular Activity Restrictions: No Restrictions Shower Restrictions: No Driving Restrictions: No Weight Bearing: Full Weight No Smoking: If you smoke, Please STOP! Call for help. Follow-up with: Chapis Elizondo PA [Primary Care Provider] -
== END 2017-09-08 14:50 | disposition home or self-care (01) ==
LOC: EDUNIT# → ED 13:35 → OBS 17:36
PROVIDERS: ADMIT Surgery; ATTEND Surgery
DX: G89.18 Other acute postprocedural pain (principal); E11.9 Type 2 diabetes mellitus without complications; F32.9 Major depressive disorder, single episode, unspecified; F41.9 Anxiety disorder, unspecified; Z79.84 Long term (current) use of oral hypoglycemic drugs; Z79.899 Other long term (current) drug therapy
CPT/HCPCS: 36415; 74177; 78226; 80053; 80076; 81025; 83690; 85025; 96361; 96365; 96366; 96372; 96375; 96376; 99283; 99284; A9270; A9537; G0378; J1170; J2060; Q9967

== ENCOUNTER 2018-08-01 11:16 | Emergency (ER) | payer MEDICARE, MEDICAID ==
[2018-08-01] MEDS ORDERED: TETANUS/DIPHTHERIA/PERTUSSIS 0.5 ML SYRINGE IM ONE (11:28)
[2018-08-01] MEDS ORDERED: BUPIVACAINE 0.5% PF 10 ML VIAL SUBQ STA (12:17)
[2018-08-01] MEDS ORDERED: ACETAMINOPHEN 325 MG TABLET PO STA (12:33)
--- NOTE | 2018-08-01 12:33 | ED Physician Documentation ---
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 - Present Medications Home Medications: Ambulatory Orders Medication Instructions Recorded Confirmed Citalopram [CeleXA] 10 mg PO DAILY 08/31/17 09/07/17 Labetalol [Trandate] 100 mg PO DAILY 08/31/17 09/07/17 metFORMIN [Glucophage] 500 mg PO BID 08/31/17 09/07/17 - Allergies Allergies/Adverse Reactions: Allergies Allergy/AdvReac Type Severity Reaction Status Date / Time acetaminophen [From Vicodin] Allergy Unknown Verified 08/01/18 11:25 hydrocodone [From Vicodin] Allergy Unknown Verified 08/01/18 11:25 - Social History Does the pt smoke?: No Smoking Status: Never smoker Does the pt drink ETOH?: No Does the pt have substance abuse?: No - Immunizations Immunizations are current?: Yes PD ED PE NORMAL - Vitals Vital signs reviewed: Yes - Extremities Extremities: Other (R index 1/5 cm lac to dorsla radial aspecy mid phalange adh to DIP, MSV intact, no FB seen or palpated, tendon fxn intact) Results - Vitals Vitals: Vital Signs - 24 hr 08/01/18 11:20 Temperature 36.5 C Heart Rate 82 Respiratory 15 Rate Blood Pressure 139/105 H O2 Saturation 98 Oxygen O2 Source Room air - Rads (name of study) finger Radiology: See rad report (no FB) Procedures - Laceration (location) R index Length in cm: 1.5 Wound type: Linear Neurovascular status: Sensory intact, Motor intact Tendon involvement: Tendon intact Anesthesia: Marcaine 0.5% Wound Preparation: Irrigated copiously NS Skin layer closure: Dermabond Other: Tetanus booster given Complexity: Simple Departure - Departure Disposition: 01 Home, Self Care Clinical Impression: Laceration Condition: Good Instructions: ED Laceration Ext Skin Glue Follow-Up: Chapis Elizondo PA [Primary Care Provider] - Comments: Wear the splint fo a week to prevent the wound from breaking open May shower etc but do not soak hands Also do not apply any lotion or ointment to the skin glue as that will cuase it to dissolve The wound should be low risk for infection - but some wounds get infected even with good wound care - if you notice redness, swelling, streaks, drainage or fever, please come back to the ER
--- NOTE | 2018-08-01 13:03 | XRAY Report ---
Reason: lac on glass eval FB Procedure Date: 08/01/2018 Accession Number: [id number] / [id number] Procedure: XR - Finger(s) RT CPT Code: FULL RESULT: EXAM: RIGHT SECOND DIGIT RADIOGRAPHY EXAM DATE: 08/01/2018 12:38 PM. CLINICAL HISTORY: Lac on glass eval FB. COMPARISON: None. TECHNIQUE: 3 views. FINDINGS: Bones: Normal. No fracture or bone lesion. Joints: Normal. No subluxations. Soft Tissues: Normal. No soft tissue swelling. No radiopaque foreign body. IMPRESSION: No radiopaque foreign body. [facility]
[2018-08-01 14:20] VITALS: BP 138/90
== END 2018-08-01 14:20 | disposition home or self-care (01) ==
LOC: ED 11:16
DX: S61.210A Laceration without foreign body of right index finger without damage to nail, initial encounter (principal); W25.XXXA Contact with sharp glass, initial encounter; Y93.G1 Activity, food preparation and clean up; I10 Essential (primary) hypertension; E11.9 Type 2 diabetes mellitus without complications; Z79.84 Long term (current) use of oral hypoglycemic drugs; Z23 Encounter for immunization
CPT/HCPCS: 12001; 73140; 90471; 90715; 99282; 99283; A9270

== ENCOUNTER 2021-06-07 09:26 | Emergency (ER) | payer MEDICARE, MEDICAID ==
[2021-06-07 09:50] VITALS: BP 129/105
--- NOTE | 2021-06-07 10:23 | ED Physician Documentation ---
PD HPI Fall - Stated complaint Stated Complaint: RT BODY PX - Chief complaint Chief Complaint: Trauma Ch/Bk - History obtained from History obtained from: Patient, Family - History of Present Illness Mechanism of injury: Tripped Fall distance: Standing position Where injury occurred: Park Timing - onset: How many days ago (2) Injury(ies) location: Back, Right Upper Extremity, Right Lower Extremity Quality of pain: Pain Associated symptoms: No: LOC, AMS, Amnesia, Seizures, Ear drainage, Nasal drainage, Neck pain, Weakness, Paresthesias, Dyspnea, Nausea / vomiting, Hematemesis, Abdominal distension Symptoms improve with: Rest Worsens with: Movement, Palpation Contributing factors: No: Anticoagulated Similar symptoms before: Has not had sx before Recently seen: Not recently seen - Additional information Additional information: Previously well 46-year-old female who is bariatric surgery and cholecystectomy [place] the beach yesterday on [facility] and she fell 3 separate times she fell onto her buttocks initially she subsequently fell onto her right hip and then fell onto her outstretched hands. Today she is here with pain in the right shoulder, lower back and right hip. The worst is the right hip. 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 - Present Medications Home Medications: Ambulatory Orders Medication Instructions Recorded Confirmed Labetalol [Trandate] 100 mg PO DAILY 08/31/17 06/07/21 Labetalol [Trandate] 100 mg PO BID 06/07/21 06/07/21 Oxycodone HCl/Acetaminophen 1 - 2 each PO Q6H PRN #14 tablet 06/07/21 [Percocet 5-325 mg Tablet] Pravastatin [Pravachol] 40 mg PO DAILY 06/07/21 06/07/21 - Allergies Allergies/Adverse Reactions: Allergies Allergy/AdvReac Type Severity Reaction Status Date / Time acetaminophen [From Vicodin] Allergy Unknown Verified 06/07/21 10:00 hydrocodone [From Vicodin] Allergy Unknown Verified 06/07/21 10:00 - Social History Does the pt smoke?: No Smoking Status: Never smoker Does the pt drink ETOH?: No Does the pt have substance abuse?: No - Immunizations Immunizations are current?: Yes PD ED PE NORMAL - Vitals Vital signs reviewed: Yes (hypertensive ) - General General: Alert and oriented X 3, No acute distress, Well developed/nourished - HEENT HEENT: Atraumatic, PERRL, EOMI - Neck Neck: Supple, no meningeal sign, No bony TTP - Cardiac Cardiac: RRR, No murmur - Respiratory Respiratory: No respiratory distress, Clear bilaterally - Abdomen Abdomen: Normal bowel sounds, Soft, Non tender, Non distended, No organomegaly - Back Back: No CVA TTP, Other (mild midline lower lumbar spine pain to palpation .) - Derm Derm: Normal color, Warm and dry, No rash - Extremities Extremities: No deformity, No edema, Other (tenderness to the right trochanter without reduced ROM. + pain with weight bearing. wrists without sig injury. R shoulder anterior pain and reduced ROM sec to pain. ) - Neuro Neuro: Alert and oriented X 3, managed care nurse 2-12 intact, No motor deficit, No sensory deficit, Normal speech Eye Opening: Spontaneous Motor: Obeys Commands Verbal: Oriented GCS Score: 15 - Psych Psych: Normal mood, Normal affect Results - Vitals Vitals: Vital Signs - 24 hr 06/07/21 09:47 Temperature 36.1 C L Heart Rate 79 Respiratory 12 Rate Blood Pressure 129/105 H O2 Saturation 99 Oxygen O2 Source Room air - Rads (name of study) shoulder Radiology: Prelim report reviewed (Impression: 1. No fracture or dislocation. 2. Mild acromioclavicular joint degeneration.), EMP read indepedently, See rad report right hip Radiology: Prelim report reviewed (Impression: No acute osseous abnormality. If there is clinical concern or persistent symptoms, additional imaging such as repeat radiographs or advanced imaging (e.g. CT, MRI) may be helpful for further evaluation.), EMP read indepedently, See rad report Departure - Departure Disposition: 01 Home, Self Care Clinical Impression: Contusion of right hip Qualifiers: Encounter type: initial encounter Qualified Code(s): S70.01XA - Contusion of right hip, initial encounter Sprain of shoulder Qualifiers: Encounter type: initial encounter Shoulder sprain type: unspecified sprain Laterality: right Qualified Code(s): S43.401A - Unspecified sprain of right shoulder joint, initial encounter Lumbar strain Qualifiers: Encounter type: initial encounter Qualified Code(s): S39.012A - Strain of muscle, fascia and tendon of lower back, initial encounter Condition: Stable Instructions: ED Sprain Shoulder, ED Contusion Hip Follow-Up: Chapis Elizondo PA [Primary Care Provider] - Timur Hopson MD [Provider Admit Priv/Credential] - Prescriptions: Oxycodone HCl/Acetaminophen [Percocet 5-325 mg Tablet] 1 - 2 each PO Q6H PRN #14 tablet PRN Reason: pain Comments: This is a second injury you have had your right shoulder and the initial one took an extra amount of time to heal up. Follow-up with your orthopedic doctor about this injury to your shoulder.
--- NOTE | 2021-06-07 11:07 | XRAY Report ---
PROCEDURE: Hip w/Pelvis 2-3V RT INDICATIONS: fall R hip contusion TECHNIQUE: AP pelvis with frog-leg lateral view of the right hip. COMPARISON: None. FINDINGS: Bones: No acute fractures or dislocations. Pelvic ring appears intact. No suspicious bony lesions. Soft tissues: The visualized bowel gas pattern is normal. No suspicious soft tissue calcifications. IMPRESSION: No acute osseous abnormality. If there is clinical concern or persistent symptoms, addit ional imaging such as repeat radiographs or advanced imaging (e.g. CT, MRI) may be helpful for furthe r evaluation. Reviewed by: Jonathan Junior MD on 06/07/2021 11:06 AM PDT Approved by: Jonathan Junior MD on 06/07/2021 11:06 AM PDT Station ID: [id number]
--- NOTE | 2021-06-07 11:10 | XRAY Report ---
PROCEDURE: Shoulder 3 View RT INDICATIONS: fall decreased ROM TECHNIQUE: 3 views of the shoulder were acquired. COMPARISON: None. FINDINGS: Bones: No fractures or dislocations. There is mild acromioclavicular joint degeneration. No suspici ous bony lesions. Visualized ribs appear intact. Soft tissues: No suspicious soft tissue calcifications. IMPRESSION: 1. No fracture or dislocation. 2. Mild acromioclavicular joint degeneration. Reviewed by: Adolfo Marrufo MD on 06/07/2021 11:08 AM PDT Approved by: Adolfo Marrufo MD on 06/07/2021 11:08 AM PDT Station ID: [id number]
--- NOTE | 2021-06-07 11:18 | XRAY Report ---
PROCEDURE: Lumbar Spine 2 View INDICATIONS: fall onto buttocks low back pain TECHNIQUE: 2 views of the lumbar spine were acquired. COMPARISON: None. FINDINGS: Bones: 5 nonrib-bearing vertebrae are present. There are mild degenerative changes with small osteoph ytes anteriorly in the lumbar vertebra. L5-S1 demonstrates disc space narrowing and endplate sclerosi s consistent with disc disease. The sacroiliac joints are normal. Soft tissues: Overlying bowel gas pattern is normal. No suspicious soft tissue calcifications. IMPRESSION: 1. Mild degenerative changes. 2. Degenerative disc disease of L5-S1. Reviewed by: Sanjay Palmer on 06/07/2021 11:16 AM PDT Approved by: Sanjay Palmer on 06/07/2021 11:16 AM PDT Station ID: [id number]
== END 2021-06-07 11:55 | disposition home or self-care (01) ==
LOC: ED 09:26
DX: S70.01XA Contusion of right hip, initial encounter (principal); S43.401A Unspecified sprain of right shoulder joint, initial encounter; S39.012A Strain of muscle, fascia and tendon of lower back, initial encounter; W19.XXXA Unspecified fall, initial encounter; Y92.832 Beach as the place of occurrence of the external cause; E11.9 Type 2 diabetes mellitus without complications; I10 Essential (primary) hypertension; Z98.84 Bariatric surgery status
CPT/HCPCS: 99284

== ENCOUNTER 2022-03-07 09:51 | Emergency (ER) | payer MEDICARE, MEDICAID ==
[2022-03-07 10:01] VITALS: BP 141/95
== END 2022-03-07 11:19 | disposition left against medical advice (07) ==
LOC: ED 09:51
DX: Z53.21 Procedure and treatment not carried out due to patient leaving prior to being seen by health care provider (principal)

== ENCOUNTER 2022-03-16 20:40 | Outpatient (CLI) | payer MEDICARE, MEDICAID | END 2022-03-16 20:41 | disposition short-term general hospital (02) | LOC: EMS 20:40 | DX: R10.817 Generalized abdominal tenderness (principal); R19.7 Diarrhea, unspecified | CPT/HCPCS: A0425; A0427; A0888 ==

== ENCOUNTER 2022-10-10 18:48 | Outpatient (CLI) | payer MEDICARE, MEDICAID | END 2022-10-10 18:49 | disposition critical access hospital (66) | LOC: EMS 18:48 | DX: R10.84 Generalized abdominal pain (principal); R11.2 Nausea with vomiting, unspecified; R20.2 Paresthesia of skin; R06.4 Hyperventilation | CPT/HCPCS: A0425; A0427 ==

== ENCOUNTER 2022-10-10 19:08 | Emergency (ER) | payer MEDICARE, MEDICAID ==
[2022-10-10 20:15] LABS: BASOPHILS # (AUTO) 0.1 10^3/uL (0.0-0.1); BASOPHILS % (AUTO) 0.6 %; EOSINOPHILS # (AUTO) 0.1 10^3/uL (0.0-0.7); EOSINOPHILS % (AUTO) 0.5 %; HCT - HEMATOCRIT 42.5 % (37.0-47.0); HGB - HEMOGLOBIN 14.4 g/dL (12.0-16.0); LYMPHOCYTES # (AUTO) 1.1 10^3/uL (1.5-3.5); LYMPHOCYTES % (AUTO) 10.2 %; MEAN CORPUSCULAR HEMOGLOBIN 30.5 pg (27.0-31.0); MEAN CORPUSCULAR HGB CONC 33.9 g/dL (32.0-36.0); MEAN PLATELET VOLUME 9.6 fL (7.9-10.8); MONOCYTES # (AUTO) 0.6 10^3/uL (0.0-1.0); MONOCYTES % (AUTO) 5.9 %; NEUTROPHILS # (AUTO) 8.9 10^3/uL (1.5-6.6); NEUTROPHILS % (AUTO) 82.5 %; PLT - PLATELET COUNT 331 10^3/uL (130-450); RED BLOOD COUNT 4.72 10^6/uL (4.20-5.40); RED CELL DISTRIBUTION WIDTH 13.2 % (12.0-15.0); WHITE BLOOD COUNT 10.7 x10^3/uL (4.8-10.8)
[2022-10-10] MEDS ORDERED: HYDROmorphone 1 MG/ML CARPUJECT IVP STA ×2 (20:27→22:14)
[2022-10-10] MEDS ORDERED: PROMETHAZINE INJ 25 MG in SODIUM CHLORIDE 0.9% 50 ML IV STA (20:28)
[2022-10-10] MEDS ORDERED: SODIUM CHLORIDE 0.9% 1,000 ML IV STA (20:28)
[2022-10-10 20:29] LABS: ALBUMIN 3.9 g/dL (3.2-5.5); ALBUMIN/GLOBULIN RATIO 1.1 (1.0-2.2); BILIRUBIN,TOTAL 0.7 mg/dL (0.2-1.0); CALCIUM 8.9 mg/dL (8.5-10.3); CREATININE 0.8 mg/dL (0.4-1.0); POTASSIUM 3.9 mmol/L (3.5-5.0); TOTAL PROTEIN 7.3 g/dL (6.7-8.2)
--- NOTE | 2022-10-10 20:31 | ED Physician Documentation ---
PD HPI ABD PAIN - Stated complaint Stated Complaint: ABD PAIN, N/V, HYPERVENTILATING - Chief complaint Chief Complaint: Abd Pain - History obtained from History obtained from: Patient - History of Present Illness Timing - onset: Enter time (09:30), Today Timing - details: Gradual onset, Waxing and waning Pain level max: 10 Pain level now: 10 Quality: Cramping, Pain Location: All over / everywhere Improved by: Other (nothing) Worsened by: Moving, Palpation Associated symptoms: Nausea, Vomiting, Diarrhea (mild). No: Fever, Constipation, Melena, Hematochezia Recently seen: Not recently seen - Additional information Additional information: HPI from patient. Patient is brought in by ambulance for abdominal pain patient Patient complains of generalized abdominal pain since 930 this morning. She has nausea and vomiting. She denies fevers at home. She says she has not had pain like this before.Past surgical history includes cholecystectomy and lap band surgery. She received 8 mg of Zofran IV as well as 10 mg of morphine IV, both medications given by EMS on route. On HPI and ROS, somewhat limited information due to most questions being answered with patient saying "please help me". Review of Systems Constitutional: denies: Fever Cardiac: reports: Reviewed and negative Respiratory: reports: Reviewed and negative GI: reports: Abdominal Pain, Nausea, Vomiting, Diarrhea (patient says mild and she attributes it to a medication she is on for PCOS). 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 - Present Medications Home Medications: Ambulatory Orders Medication Instructions Recorded Confirmed Labetalol [Trandate] 100 mg PO DAILY 08/31/17 10/12/22 Labetalol [Trandate] 100 mg PO BID 06/07/21 10/12/22 Oxycodone HCl/Acetaminophen 1 - 2 each PO Q6H PRN #14 tablet 06/07/21 10/12/22 [Percocet 5-325 mg Tablet] Pravastatin [Pravachol] 40 mg PO DAILY 06/07/21 10/12/22 Ondansetron Odt [Zofran Odt] 4 mg TL Q6H PRN #10 tablet 10/11/22 10/12/22 Promethazine [Phenergan] 25 mg PO Q6H PRN #10 tab 10/11/22 10/12/22 - Allergies Allergies/Adverse Reactions: Allergies Allergy/AdvReac Type Severity Reaction Status Date / Time acetaminophen [From Vicodin] Allergy Unknown Verified 10/12/22 05:37 hydrocodone [From Vicodin] Allergy Unknown Verified 10/12/22 05:37 - Social History Does the pt smoke?: No Smoking Status: Never smoker Does the pt drink ETOH?: No Does the pt have substance abuse?: No - Immunizations Immunizations are current?: Yes - POLST Patient has POLST: No PD ED PE NORMAL - Vitals Vital signs reviewed: Yes - General General: No acute distress, Other (obese female, drowsy, poor eye contact, answers questions slowly and very quietly (occasionally needs to repeat for me to understand)) - HEENT HEENT: PERRL, EOMI, Moist mucous membranes - Cardiac Cardiac: RRR, No murmur - Respiratory Respiratory: No respiratory distress, Clear bilaterally - Abdomen Abdomen: Soft, Non distended, Other (diffusely TTP ) Results - Vitals Vitals: Oxygen O2 Source Room air - Labs Labs: Laboratory Tests 10/10/22 10/10/22 10/10/22 20:02 20:02 21:23 WBC 10.7 RBC 4.72 Hgb 14.4 Hct 42.5 MCV 90.0 MCH 30.5 MCHC 33.9 RDW 13.2 Plt Count 331 MPV 9.6 Neut # (Auto) 8.9 H Lymph # (Auto) 1.1 L Richardson # (Auto) 0.6 Eos # (Auto) 0.1 Baso # (Auto) 0.1 Absolute Nucleated RBC 0.00 Nucleated RBC % 0.0 Sodium 135 Potassium 3.9 Chloride 105 Carbon Dioxide 19 L Anion Gap 11.0 BUN 14 Creatinine 0.8 Estimated GFR (MDRD) 77 L Glucose 155 H Calcium 8.9 Total Bilirubin 0.7 AST 14 ALT 15 Alkaline Phosphatase 59 Total Protein 7.3 Albumin 3.9 Globulin 3.4 Albumin/Globulin Ratio 1.1 Lipase 27 Urine Color YELLOW Urine Clarity CLEAR Urine pH 8.0 H Ur Specific [place] 1.020 Urine Protein NEGATIVE Urine Glucose (UA) NEGATIVE Urine Ketones >=80 H Urine Occult Blood NEGATIVE Urine Nitrite NEGATIVE Urine Bilirubin NEGATIVE Urine Urobilinogen 0.2 (NORMAL) Ur Leukocyte Esterase NEGATIVE Ur Microscopic Review NOT INDICATED Urine Culture Comments NOT INDICATED Urine HCG, Qual NEGATIVE - Rads (name of study) CT A/P Radiology: Prelim report reviewed, See rad report PD Medical Decision Making - ED course Complexity details: reviewed old records, reviewed results, re-evaluated patient, considered differential, d/w patient ED course: Presents with abdominal pain with nausea, vomiting. Given 10mg morphine IV and 8 mg IV zofran by EMS en route; Patient says these medications did not help her symptoms. In the emergency department she was given IV normal saline x1 L, Dilaudid 1 mg IV x2 doses, 25 mg IV Phenergan, and 2.[address] abdomen and pelvis undertaken and no cause of symptoms is found. An incidental note of a left hemipelvic cystic structure, likely ovarian based, is noted. On reevaluation after tests are resulted, she is awake alert and oriented x3 and reports resolution of her symptoms.She has prescribed pain medication at home beta-judith and thus is not prescribed nor does she request prescription pain medication. Return precautions discussed. Results reviewed with patient including the finding on CT of the hemipelvic cystic structure and the need to follow-up with her primary care provider for reevaluation not only her symptoms but possible further testing regarding the CT finding. I did provide her prescriptions for p.o. Zofran as well as p.o. Phenergan.Return precautions discussed. Results reviewed with patient including the finding on CT of the hemipelvic cystic structure and the need to follow-up with her primary care provider for reevaluation not only her symptoms but possible further testing regarding the CT finding. Departure - Departure Disposition: 01 Home, Self Care Clinical Impression: Abdominal pain Qualifiers: Abdominal location: generalized Qualified Code(s): R10.84 - Generalized abdominal pain Condition: Good Instructions: ED Abdominal Pain Female Non-Specific Abdominal Pain Prescriptions: Promethazine [Phenergan] 25 mg PO Q6H PRN #10 tab PRN Reason: Nausea / Vomiting Ondansetron Odt [Zofran Odt] 4 mg TL Q6H PRN #10 tablet PRN Reason: Nausea / Vomiting Comments: There are no concerning nor diagnostic findings on the results of tonight's tests. The CT scan of the abdomen and pelvis has no findings that would explain your symptoms. An incidental finding of a left pelvic cyst or mass is noted, suspected to be ovarian-based. You need to follow up with your primary care provider regarding this finding, as more tests might be needed to further characterize this structure. Prescriptions for two different anti-nausea medications have been electronically submitted to [facility]. Use the ondansetron for nausea/vomiting; if this is not effective , you can then try the phenergan Discharge Date/Time: 10/11/22 00:32
[2022-10-10] MEDS ORDERED: PROMETHAZINE 25 MG/1 ML VIAL ONE (20:34)
[2022-10-10] MEDS ORDERED: iohexoL-300 100 ML VIAL ONE (21:00)
[2022-10-10] MEDS ORDERED: DIATRIZOATE MEGLU/DIATRIZO SOD 30 ML BOTTLE PO ONE ×2 (21:01→22:17)
[2022-10-10 21:35] LABS: BILIRUBIN,URINE NEGATIVE (NEGATIVE); GLUCOSE, URINE (UA) NEGATIVE (NEGATIVE); KETONES,URINE (UA) >=80 mg/dL (NEGATIVE); LEUKOCYTE ESTERASE, URINE NEGATIVE (NEGATIVE); NITRITE,URINE NEGATIVE (NEGATIVE); OCCULT BLOOD,URINE NEGATIVE (NEGATIVE); PROTEIN,URINE NEGATIVE (NEGATIVE); UROBILINOGEN,URINE 0.2 (NORMAL) E.U./dL (NORMAL)
[2022-10-10 21:38] LABS: CLARITY,URINE CLEAR (CLEAR); HCG UR QUAL NEGATIVE
[2022-10-10] MEDS ORDERED: DROPERIDOL 5 MG/2 ML VIAL IVP STA (22:15)
[2022-10-10] MEDS ORDERED: iohexoL-300 100 ML VIAL IVP ONE (22:16)
--- NOTE | 2022-10-10 22:38 | CT Report ---
PROCEDURE: ABDOMEN/PELVIS W INDICATIONS: abd. pain CONTRAST: 100 ML OMNI 300 AT 2.5 ML/SEC WITH 60 SEC DELAY TECHNIQUE: After the administration of nonionic contrast, 5 mm thick sections acquired from the diaphragms to th e symphysis. 5 mm thick coronal and sagittal reformats were acquired. For radiation dose reduction, the following was used: automated exposure control, adjustment of mA and/or kV according to patient size. COMPARISON: Similar CT 09/07/2017. FINDINGS: Image quality: Excellent. ABDOMEN: Lung bases: Lung bases are clear. Heart size is normal. Solid organs: Liver and spleen are normal in size and enhancement. Gallbladder has been resected. Biliary system is non dilated. Pancreas enhances normally. No adrenal nodules. Kidneys demonstrate normal size and enhancement, without hydronephrosis. Peritoneum and bowel: Bowel loops demonstrate normal wall thickness and caliber. No free fluid or a ir. Gastric lap band with control catheter and device showing no signs of inflammation. Nodes and vessels: No retroperitoneal or mesenteric adenopathy by size criteria. Aorta and inferior vena cava are normal in size. Miscellaneous: No ventral hernias. PELVIS: Genitourinary: Bladder wall thickness is normal. Within the left anterior hemipelvis in the expecte d course of the broad ligament there is a cystic and solid structure that measures up to both 4.0 x 4 .7 cm in AP and transverse dimension, and approximately 4.5 cm craniocaudad. This likely is ovarian i n origin. Miscellaneous: No inguinal hernias or adenopathy. Bones: No suspicious bony lesions. No vertebral body compression fractures. IMPRESSION: Prior cholecystectomy. Gastric lap band in place. No definite acute disease but there is a finding of a cystic structure at the left anterior lower hemipelvis likely ovarian in origin, kayli uring up to 4.0 x 4.7 x 4.5 cm. Follow-up elective pelvic ultrasound is recommended-this may represen t a early manifestation of ovarian malignancy. There is no visualized evidence of peritoneal masses o r abnormal peritoneal free fluid.1 Reviewed by: Yonny Cason MD on 10/10/2022 10:37 PM PST Approved by: Yonny Cason MD on 10/10/2022 10:37 PM PST Station ID: [id number]
[2022-10-11] MEDS ORDERED: ONDANSETRON ODT 4 MG Prepack 2 TL PRN (00:19)
[2022-10-11 00:20] VITALS: BP 118/79
== END 2022-10-11 00:32 | disposition home or self-care (01) ==
LOC: EDUNIT# → ED 19:08
DX: R10.84 Generalized abdominal pain (principal); R11.2 Nausea with vomiting, unspecified; R93.5 Abnormal findings on diagnostic imaging of other abdominal regions, including retroperitoneum
CPT/HCPCS: 36415; 74177; 80053; 81003; 81025; 83690; 85025; 96361; 96365; 96375; 99284; J1170; J7040; Q9963; Q9967; 81001; 87086

== ENCOUNTER 2022-10-12 05:13 | Outpatient (CLI) | payer MEDICARE, MEDICAID | END 2022-10-12 05:14 | disposition critical access hospital (66) | LOC: EMS 05:13 | DX: R10.31 Right lower quadrant pain (principal); R10.32 Left lower quadrant pain; R11.0 Nausea | CPT/HCPCS: A0425; A0427 ==

== ENCOUNTER 2022-10-12 05:30 | Emergency (ER) | payer MEDICARE, MEDICAID ==
[2022-10-12] MEDS ORDERED: DROPERIDOL 5 MG/2 ML VIAL IVP STA (05:42)
[2022-10-12] MEDS ORDERED: HYDROmorphone 1 MG/ML CARPUJECT IVP STA ×2 (05:42→06:30)
[2022-10-12 05:59] LABS: BASOPHILS # (AUTO) 0.1 10^3/uL (0.0-0.1); BASOPHILS % (AUTO) 0.6 %; EOSINOPHILS # (AUTO) 0.1 10^3/uL (0.0-0.7); EOSINOPHILS % (AUTO) 0.6 %; HCT - HEMATOCRIT 42.7 % (37.0-47.0); HGB - HEMOGLOBIN 14.1 g/dL (12.0-16.0); LYMPHOCYTES # (AUTO) 1.1 10^3/uL (1.5-3.5); LYMPHOCYTES % (AUTO) 9.6 %; MEAN CORPUSCULAR HEMOGLOBIN 30.3 pg (27.0-31.0); MEAN CORPUSCULAR VOLUME 91.6 fL (81.0-99.0); MEAN PLATELET VOLUME 9.6 fL (7.9-10.8); MONOCYTES # (AUTO) 0.5 10^3/uL (0.0-1.0); MONOCYTES % (AUTO) 4.2 %; NEUTROPHILS # (AUTO) 9.6 10^3/uL (1.5-6.6); NEUTROPHILS % (AUTO) 84.6 %; PLT - PLATELET COUNT 305 10^3/uL (130-450); RED BLOOD COUNT 4.66 10^6/uL (4.20-5.40); RED CELL DISTRIBUTION WIDTH 13.4 % (12.0-15.0); WHITE BLOOD COUNT 11.4 x10^3/uL (4.8-10.8)
[2022-10-12 06:07] LABS: ALBUMIN 3.9 g/dL (3.2-5.5); ALBUMIN/GLOBULIN RATIO 1.2 (1.0-2.2); BILIRUBIN,TOTAL 1.2 mg/dL (0.2-1.0); CALCIUM 8.6 mg/dL (8.5-10.3); CREATININE 0.9 mg/dL (0.4-1.0); POTASSIUM 3.5 mmol/L (3.5-5.0); TOTAL PROTEIN 7.2 g/dL (6.7-8.2)
--- NOTE | 2022-10-12 07:08 | ED Physician Documentation ---
PD HPI ABD PAIN - Stated complaint Stated Complaint: ABD PAIN - Chief complaint Chief Complaint: Abd Pain - History obtained from History obtained from: Patient - History of Present Illness Timing - onset: How many days ago (several) Timing - details: Abrupt onset, Still present, Waxing and waning Quality: Cramping, Aching, Pain Location: All over / everywhere Radiation: No: Left flank, Right flank Improved by: No: Laying still, BM Worsened by: Eating, Palpation. No: Moving Associated symptoms: Nausea, Vomiting, Diarrhea (loose), Loss of appetite. No: Fever, Constipation, Melena, Hematochezia, Dysuria Similar symptoms before: Has not had sx before Recently seen: Clinic (recently seen for weight loss and started on semaglutide orally few weeks ago with increased dose rom 3 to 7 mg 1 week ago.), Emergency Dept (2 days ago for same symptoms that improved with antiemetics and pain meds. Had labs and CT abd. Note of left ovarian mass with suggested U/S follow up. This was not thought likely to be cause of the diffuse abd crampy pain.) Review of Systems Constitutional: denies: Fever, Chills Nose: denies: Rhinorrhea / runny nose, Congestion Throat: denies: Sore throat Respiratory: denies: Cough GI: reports: Abdominal Pain, Nausea, Vomiting, Diarrhea (loose). denies: Abdominal Swelling, Constipation, Bloody / black stool : denies: Dysuria Neurologic: reports: Generalized weakness. 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, Other : None HEENT: None Psych: Depression, Anxiety Musculoskeletal: None Derm: None - Past Surgical History Past Surgical History: Yes General: Other /DIE TROUBLE SHOOTER: section - Present Medications Home Medications: Ambulatory Orders Medication Instructions Recorded Confirmed Labetalol [Trandate] 100 mg PO DAILY 08/31/17 10/12/22 Labetalol [Trandate] 100 mg PO BID 06/07/21 10/12/22 Oxycodone HCl/Acetaminophen 1 - 2 each PO Q6H PRN #14 tablet 06/07/21 10/12/22 [Percocet 5-325 mg Tablet] Pravastatin [Pravachol] 40 mg PO DAILY 06/07/21 10/12/22 Ondansetron Odt [Zofran Odt] 4 mg TL Q6H PRN #10 tablet 10/11/22 10/12/22 Promethazine [Phenergan] 25 mg PO Q6H PRN #10 tab 10/11/22 10/12/22 Dicyclomine [Bentyl] 10 mg PO QID PRN #20 cap 10/12/22 Famotidine [Pepcid] 20 mg PO DAILY #20 tablet 10/12/22 Prochlorperazine Maleate 10 mg PO Q4HR PRN #12 tab 10/12/22 [Compazine] Promethazine Supp [Phenergan Supp] 25 mg AL Q6H PRN #5 supp 10/12/22 - Allergies Allergies/Adverse Reactions: Allergies Allergy/AdvReac Type Severity Reaction Status Date / Time acetaminophen [From Vicodin] Allergy Unknown Verified 10/12/22 05:37 hydrocodone [From Vicodin] Allergy Unknown Verified 10/12/22 05:37 - Social History Does the pt smoke?: No Smoking Status: Never smoker Does the pt drink ETOH?: No Does the pt have substance abuse?: No Substance Use and Type: Marijuana - Immunizations Immunizations are current?: Yes - POLST Patient has POLST: No PD ED PE NORMAL - Vitals Vital signs reviewed: Yes - General General: Alert and oriented X 3, Well developed/nourished, Other (appears mildly uncomfortable but has had some IV pain meds by EMS and then in ER so far. ) - Neck Neck: Supple, no meningeal sign, No adenopathy - Cardiac Cardiac: RRR, No murmur - Respiratory Respiratory: Clear bilaterally - Abdomen Abdomen: Soft, Non distended, No organomegaly, Other (mild tender mid to upper abd without guarding nor percussion tender. ). No: Normal bowel sounds (increased) - Female Female : Deferred - Rectal Rectal: Deferred - Back Back: No CVA TTP - Derm Derm: Normal color, Warm and dry - Neuro Neuro: Alert and oriented X 3, No motor deficit, Normal speech Results - Vitals Vitals: Vital Signs - 24 hr 10/12/22 10/12/22 10/12/22 05:39 07:16 09:00 Temperature 36.3 C L Heart Rate 56 L 74 57 L Respiratory 18 14 12 Rate Blood Pressure 165/97 H 111/69 133/66 H O2 Saturation 100 93 96 Oxygen O2 Source Room air - Labs Labs: Laboratory Tests 10/12/22 10/12/22 05:52 05:52 WBC 11.4 H RBC 4.66 Hgb 14.1 Hct 42.7 MCV 91.6 MCH 30.3 MCHC 33.0 RDW 13.4 Plt Count 305 MPV 9.6 Neut # (Auto) 9.6 H Lymph # (Auto) 1.1 L Caswell # (Auto) 0.5 Eos # (Auto) 0.1 Baso # (Auto) 0.1 Absolute Nucleated RBC 0.00 Nucleated RBC % 0.0 Sodium 134 L Potassium 3.5 Chloride 104 Carbon Dioxide 21 Anion Gap 9.0 BUN 12 Creatinine 0.9 Estimated GFR (MDRD) 67 L Glucose 134 H Calcium 8.6 Total Bilirubin 1.2 H AST 15 ALT 17 Alkaline Phosphatase 54 Total Protein 7.2 Albumin 3.9 Globulin 3.3 Albumin/Globulin Ratio 1.2 Lipase 29 - Rads (name of study) pelvic U/S Radiology: Other (s/w US tech - prelim is 2 cysts left ovary of about 2 cm each, one simple and other hemorrhagic. No free fluid. No solid structures. ) PD Medical Decision Making - ED course Complexity details: reviewed old records, reviewed results, re-evaluated patient (She remains with minimal pains and does not request further. Given dicyclomine to keep spasms less. Also consider H2 judith. Presume symptoms from semaglutide med (listed as side effects in [employer]).), considered differential (recent med semaglutide does have side effects of nausea/abd cramps/diarrhea and so could be cause. Can check stool for c diff. Had CT 2 days ago so no indication for repeat. Had ovarian mass and can get U/S to eval for inflammation/signs of torsion/etc. ), d/w patient Departure - Departure Disposition: 01 Home, Self Care Clinical Impression: Abdominal cramping, Ovarian cyst Medication adverse effect Qualifiers: Encounter type: subsequent encounter Qualified Code(s): T50.905D - Adverse effect of unspecified drugs, medicaments and biological substances, subsequent encounter Condition: Stable Record reviewed to determine appropriate education?: Yes Prescriptions: Prochlorperazine Maleate [Compazine] 10 mg PO Q4HR PRN #12 tab PRN Reason: Nausea / Vomiting Dicyclomine [Bentyl] 10 mg PO QID PRN #20 cap PRN Reason: Abdominal Pain Famotidine [Pepcid] 20 mg PO DAILY #20 tablet Promethazine Supp [Phenergan Supp] 25 mg AL Q6H PRN #5 supp PRN Reason: Nausea / Vomiting Comments: The ultrasound of your pelvis showed 2 cysts on the left ovary area, one simple approximately 2 cm and the other hemorrhagic but still unruptured, also 2 cm which accounted for the CT finding of an approximately 4 cm general mass. No signs of solid structures such as tumors on ultrasound. I do not think this would account for the pains that you are having. It sounds much more likely to relate to the recent semaglutide medication. I would have you discontinue the semaglutide. Stay well-hydrated and continue usual medications, in particular the pain medication and meloxicam. In addition we can try different nausea medicine of Compazine orally. I also wrote for several promethazine suppositories if needed for of nausea and vomiting. I would also suggest adding famotidine acid reducing medicine twice daily for a few days and then once daily for another 2 to 3 weeks. I also prescribed dicyclomine which is an intestinal antispasmodic to help with some of the cramps and pains. I would anticipate decrease in the pains and cramps over the next 2 or 3 days after stopping the semaglutide medication. Follow-up with your primary care regarding any other medications instead. I sent your prescriptions to [facility] pharmacy in [place] which should be open today.
[2022-10-12] MEDS ORDERED: FAMOTIDINE 20 MG/2 ML VIAL IVP STA (07:34)
[2022-10-12] MEDS ORDERED: KETOROLAC 15 MG/ML VIAL IVP STA (07:34)
[2022-10-12] MEDS ORDERED: SODIUM CHLORIDE 0.9% 1,000 ML IV STA (07:35)
[2022-10-12] MEDS ORDERED: MAG HYDROX/AL HYDROX/SIMETH 30 ML UDC PO STA (07:35)
[2022-10-12] MEDS ORDERED: DICYCLOMINE 10 MG CAPSULE PO STA (10:20)
[2022-10-12 10:54] VITALS: BP 135/60
--- NOTE | 2022-10-12 11:09 | Ultrasound Report ---
PROCEDURE: Pelvic Complete INDICATIONS: left ovarian/pelvic mass on CT. Abd pain TECHNIQUE: Real-time transabdominal scanning was performed of the pelvic organs, with image documentation. COMPARISON: CT abdomen and pelvis dated 10/10/2022 FINDINGS: Uterus: Surgically absent Ovaries: Right ovary not visualized. This may be secondary to overlying bowel gas. Left ovary measur es 4.8 x 3.3 x 4.0 cm. It contains a complex probably hemorrhagic ovarian cyst measuring 3.4 x 3.6 x 3.3 cm, as well as a subjacent simple cyst measuring 2.0 x 2.1 x 2.2 cm. There is normal intraovarian flow by duplex. Other: No free pelvic fluid. IMPRESSION: Findings on CT correlate with a probable hemorrhagic left ovarian cyst measuring 3.6 cm in maximum diameter, with a subjacent simple cyst measuring 2.2 cm in maximum diameter. No evidence o f left ovarian torsion. Reviewed by: Mariusz Rosario MD on 10/12/2022 11:08 AM PST Approved by: Mariusz Rosario MD on 10/12/2022 11:08 AM PST Station ID: [id number]
== END 2022-10-12 10:57 | disposition home or self-care (01) ==
LOC: EDUNIT# → ED 05:30
DX: R10.84 Generalized abdominal pain (principal); R11.2 Nausea with vomiting, unspecified; R19.7 Diarrhea, unspecified; T50.995A Adverse effect of other drugs, medicaments and biological substances, initial encounter; N83.292 Other ovarian cyst, left side
CPT/HCPCS: 36415; 76856; 80053; 83690; 85025; 96374; 96375; 99284; 99285; A9270; J1170

== ENCOUNTER 2022-10-14 21:44 | Outpatient (CLI) | payer MEDICARE, MEDICAID | END 2022-10-14 21:45 | disposition critical access hospital (66) | LOC: EMS 21:44 | DX: R10.31 Right lower quadrant pain (principal); R10.32 Left lower quadrant pain; R11.0 Nausea; R10.814 Left lower quadrant abdominal tenderness; R10.813 Right lower quadrant abdominal tenderness; R07.89 Other chest pain | CPT/HCPCS: A0425; A0427 ==

== ENCOUNTER 2022-10-14 22:05 | Emergency (ER) | payer MEDICARE, MEDICAID ==
[2022-10-14 22:16] VITALS: BP 135/89
[2022-10-14] MEDS ORDERED: KETOROLAC 15 MG/ML VIAL IVP STA (23:01)
--- NOTE | 2022-10-14 23:05 | ED Physician Documentation ---
History of Present Illness - Stated complaint Stated Complaint: ABD PX - Chief complaint Chief Complaint: Abd Pain - History obtained from History obtained from: Patient, EMS - Additonal information Additional information: 47-year-old woman presents for her third ED visit in the past week with generalized abdominal pain and nausea since 5pm tonight. Patient had 4 mg IV Zofran and 200 cc IV fluids on route.She was seen here 2 days prior and had abdominal ultrasound showing ovarian cysts consistent with her PCOS. She also had CT 4 days ago without acute findings. Of note, patient has diabetes, high blood pressure, PCOS, Parkinson's, past surgical history of gastric band in 2010. Review of Systems Ten Systems: 10 systems reviewed and negative Constitutional: denies: Fever, Chills GI: reports: Abdominal Pain, Nausea. 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, Other : None HEENT: None Psych: Depression, Anxiety Musculoskeletal: None Derm: None - Past Surgical History Past Surgical History: Yes General: Other /RADIAL SAW OPERATOR: section - Present Medications Home Medications: Ambulatory Orders Medication Instructions Recorded Confirmed Labetalol [Trandate] 100 mg PO DAILY 08/31/17 10/12/22 Labetalol [Trandate] 100 mg PO BID 06/07/21 10/12/22 Oxycodone HCl/Acetaminophen 1 - 2 each PO Q6H PRN #14 tablet 06/07/21 10/12/22 [Percocet 5-325 mg Tablet] Pravastatin [Pravachol] 40 mg PO DAILY 06/07/21 10/12/22 Ondansetron Odt [Zofran Odt] 4 mg TL Q6H PRN #10 tablet 10/11/22 10/12/22 Promethazine [Phenergan] 25 mg PO Q6H PRN #10 tab 10/11/22 10/12/22 Dicyclomine [Bentyl] 10 mg PO QID PRN #20 cap 10/12/22 Famotidine [Pepcid] 20 mg PO DAILY #20 tablet 10/12/22 Prochlorperazine Maleate 10 mg PO Q4HR PRN #12 tab 10/12/22 [Compazine] Promethazine Supp [Phenergan Supp] [address] Q6H PRN #5 supp 10/12/22 - Allergies Allergies/Adverse Reactions: Allergies Allergy/AdvReac Type Severity Reaction Status Date / Time acetaminophen [From Vicodin] Allergy Unknown Verified 10/14/22 22:13 hydrocodone [From Vicodin] Allergy Unknown Verified 10/14/22 22:13 - Social History Does the pt smoke?: No Smoking Status: Never smoker Does the pt drink ETOH?: No Does the pt have substance abuse?: No - Immunizations Immunizations are current?: Yes - POLST Patient has POLST: No PD ED PE NORMAL - Vitals Vital signs reviewed: Yes - General General: Alert and oriented X 3, Other (large body habitus) - HEENT HEENT: Atraumatic, PERRL, EOMI - Neck Neck: Supple, no meningeal sign - Cardiac Cardiac: RRR - Respiratory Respiratory: No respiratory distress, Clear bilaterally - Abdomen Abdomen: Non tender, Non distended, Other (diffuse discomfort to palpation) - Derm Derm: Normal color, Warm and dry - Neuro Neuro: No motor deficit, No sensory deficit - Psych Psych: Normal affect, Other (moaning intermittently, then calm and conversant) Results - Vitals Vitals: Vital Signs - 24 hr 10/14/22 10/14/22 22:13 22:15 Temperature 36.5 C 36.5 C Heart Rate 64 64 Respiratory 20 20 Rate Blood Pressure 135/89 H 135/89 H O2 Saturation 100 100 Oxygen O2 Source Room air PD Medical Decision Making - ED course ED course: 47yF p/w abdominal pain she attributes to new pcos medication she had been taking. discussed that she has already had extensive workup in the ED and has pain medication at home that she can take. She was given IV zofran by ems and received IV toradol here in the ED. Plan to dc home to f/u with pcp and GI. referral provided. return precautions given. Departure - Departure Disposition: 01 Home, Self Care Clinical Impression: Chronic abdominal pain Condition: Stable Instructions: Abdominal Pain Follow-Up: Chrissie Wolff MD [Physician No Access] - Comments: You are seen in the emergency department for abdominal pain. You have already had an extensive work-up in the emergency department and no emergent cause was found for your symptoms. Please follow-up with your primary care provider and GI. Return to the emergency department if you have any new or worsening symptoms or concerns.
== END 2022-10-14 23:58 | disposition home or self-care (01) ==
LOC: EDUNIT# → ED 22:05
DX: R10.84 Generalized abdominal pain (principal); G89.29 Other chronic pain
CPT/HCPCS: 96374; 99282